=== PATIENT | male | born 1945 | race Hispanic/Latino ===

== ENCOUNTER 2022-09-28 08:30 | Emergency (ER) | payer OTHER, MEDICARE ==
[~2022-09-28] VITALS: Ht 165.1 cm; Wt 48.5 kg
[2022-09-28] MEDS ORDERED: LACTATED RINGERS 1000ML 1,000 ML IV ONE (10:00)
[2022-09-28 10:01] LABS: MEAN CORPUSCULAR HGB CONC 33.2 g/dL (32.0-36.0); MEAN CORPUSCULAR VOLUME 87.4 fL (79-99); RED BLOOD CELL COUNT(AUTO) 4.69 MIL/uL (4.50-6.20); RED CELL DISTRIBUTION WIDTH 14.5 % (11.0-15.5); WHITE BLOOD COUNT (AUTO) 9.4 K/uL (4.8-10.8)
[2022-09-28 10:09] LABS: APPEARANCE,URINE CLEAR (CLEAR); BILIRUBIN,URINE NEGATIVE (NEGATIVE); COLOR,URINE COLORLESS (YELLOW); GLUCOSE, URINE (UA) NEGATIVE (NEGATIVE); KETONES,URINE NEGATIVE (NEGATIVE); LEUKOCYTE ESTERASE ,URINE 25 Leu/uL (NEGATIVE); NITRATE,URINE NEGATIVE (NEGATIVE); OCCULT BLOOD,URINE SMALL (NEGATIVE); PH,URINE 6.5 (5.0-8.0); PROTEIN,URINE NEGATIVE (NEGATIVE); UROBILINOGEN,URINE 0.2 mg/dL (0.2-1.0)
[2022-09-28 10:29] LABS: BACTERIA,URINE RARE /HPF (None Seen); MUCUS,URINE RARE LPF (None Seen); RBC,URINE 26-50 /HPF (0-1)
[2022-09-28 11:00] LABS: ALBUMIN 3.8 g/dL (3.5-5.0); CREATININE 1.5 mg/dL (0.5-1.5); POTASSIUM 3.7 mmol/L (3.5-5.1); TOTAL PROTEIN, SERUM 7.4 g/dL (6.0-8.3)
[2022-09-28] MEDS ORDERED: CEPH500T PO (12:26)
[2022-09-28 12:49] VITALS: BP 164/82; PULSE 71; RESP 18; O2SAT 99
== END 2022-09-28 12:54 | disposition home or self-care (01) ==
LOC: EDH 08:30
DX: N40.1 Benign prostatic hyperplasia with lower urinary tract symptoms (principal); R33.8 Other retention of urine; I10 Essential (primary) hypertension; E78.00 Pure hypercholesterolemia, unspecified
CPT/HCPCS: 99284; 96360; 76770; 96361; 80053; 85027; 81001; 36415; 51702; J7120

== ENCOUNTER → 2023-03-29 | Outpatient (CLI) | payer OTHER ==
[~2023-03-29] VITALS: Ht 165.1 cm; Wt 49.5 kg
[~2023-03-29] MED LIST: AEC81 PO; AMLO-257 PO; ATOR-2 PO; CEFTRIAXONE 1G VIAL ONE; CEPH500T PO; LACTATED RINGERS 1000ML 1,000 ML IV ONE; LOSA50TA64 PO; TAMS-1 PO
[2023-03-29 12:45] VITALS: BP 208/76; PULSE 80; RESP 18
[2023-03-29 12:51] LABS: BASOPHILS # (AUTO) 0.04 K/uL (0.00-0.20); BASOPHILS % (AUTO) 0.6 % (0.0-5.0); EOSINOPHILS # (AUTO) 0.14 K/uL (0.00-0.70); EOSINOPHILS % (AUTO) 2.2 % (0.0-8.0); HEMATOCRIT 39.5 % (42-54); IMMATURE GRANULOCYTE ABSOLUTE 0.03 K/uL (0-1); LYMPHOCYTES # (AUTO) 2.1 K/uL (1.0-4.8); MEAN CORPUSCULAR HEMOGLOBIN 27.8 pg (27.0-33.0); MEAN CORPUSCULAR HGB CONC 31.6 g/dL (32.0-36.0); MEAN CORPUSCULAR VOLUME 87.8 fL (79-99); MONOCYTES # (AUTO) 0.5 K/uL (0.1-1.0); MONOCYTES % (AUTO) 7.1 % (3.0-13.0); NEUTROPHILS # (AUTO) 3.7 K/uL (1.8-7.7); NEUTROPHILS % (AUTO) 56.6 % (40.0-77.0); PLATELET COUNT (AUTO) 339 K/uL (130-400); RED CELL DISTRIBUTION WIDTH 14.5 % (11.0-15.5); WHITE BLOOD COUNT (AUTO) 6.5 K/uL (4.8-10.8)
[2023-03-29 12:52] LABS: APPEARANCE,URINE CLOUDY (CLEAR); BILIRUBIN,URINE NEGATIVE (NEGATIVE); COLOR,URINE LIGHT-YELLOW (YELLOW); GLUCOSE, URINE (UA) NEGATIVE (NEGATIVE); KETONES,URINE NEGATIVE (NEGATIVE); LEUKOCYTE ESTERASE ,URINE 500 Leu/uL (NEGATIVE); NITRATE,URINE 2+ (NEGATIVE); PH,URINE 6.5 (5.0-8.0); PROTEIN,URINE 10 mg/dL (NEGATIVE); UROBILINOGEN,URINE 0.2 mg/dL (0.2-1.0)
[2023-03-29 12:59] LABS: ADD UA MICROSCOPIC YES
[2023-03-29 13:06] LABS: INR <= 0.93 (0.85-1.15); PROTHROMBIN TIME 10.3 SEC (9.6-11.6)
[2023-03-29 13:07] LABS: PARTIAL THROMBOPLASTIN TIME 29.1 SEC (26.3-35.5)
[2023-03-29 13:19] LABS: CREATININE 1.2 mg/dL (0.5-1.5); POTASSIUM 4.5 mmol/L (3.5-5.1)
[2023-03-29 13:38] LABS: BACTERIA,URINE Moderate /HPF (None Seen)
[2023-03-29 13:46] LABS: SQUAMOUS EPITHELIAL CELL,UR 0-2 /HPF (0-2)
== END | disposition home or self-care (01) ==
LOC: DAH 12:04 → EDSTATUS 13:00 → DAH 04-01 10:03
PROVIDERS: ATTEND Urology
DX: N40.1 Benign prostatic hyperplasia with lower urinary tract symptoms (principal); R33.8 Other retention of urine; Z53.8 Procedure and treatment not carried out for other reasons; Z98.890 Other specified postprocedural states; Z79.899 Other long term (current) drug therapy; Z79.01 Long term (current) use of anticoagulants
CPT/HCPCS: 71045; 80048; 85025; 85610; 85730; 87077; 87088; 87186; 81001; 36415; 93005; A6260

== ENCOUNTER 2023-05-06 06:36 | Day surgery (SDC) | payer OTHER ==
[2023-04-30 12:03] LABS: BASOPHILS # (AUTO) 0.04 K/uL (0.00-0.20); BASOPHILS % (AUTO) 0.6 % (0.0-5.0); EOSINOPHILS # (AUTO) 0.11 K/uL (0.00-0.70); EOSINOPHILS % (AUTO) 1.6 % (0.0-8.0); HEMATOCRIT 44.4 % (42-54); IMMATURE GRANULOCYTE ABSOLUTE 0.03 K/uL (0-1); LYMPHOCYTES # (AUTO) 1.7 K/uL (1.0-4.8); LYMPHOCYTES % (AUTO) 24.1 % (21.0-51.0); MEAN CORPUSCULAR HEMOGLOBIN 27.7 pg (27.0-33.0); MEAN CORPUSCULAR HGB CONC 31.5 g/dL (32.0-36.0); MEAN CORPUSCULAR VOLUME 87.7 fL (79-99); MONOCYTES # (AUTO) 0.5 K/uL (0.1-1.0); MONOCYTES % (AUTO) 7.7 % (3.0-13.0); NEUTROPHILS # (AUTO) 4.6 K/uL (1.8-7.7); NEUTROPHILS % (AUTO) 65.6 % (40.0-77.0); PLATELET COUNT (AUTO) 342 K/uL (130-400); RED BLOOD CELL COUNT(AUTO) 5.06 MIL/uL (4.50-6.20)
[2023-04-30 12:10] VITALS: BP_SYST 160; BP_SYST 196; BP_DIAS 76; BP_DIAS 80; PULSE 69; RESP 16
[2023-04-30 12:17] LABS: APPEARANCE,URINE CLOUDY (CLEAR); BILIRUBIN,URINE NEGATIVE (NEGATIVE); COLOR,URINE LIGHT-YELLOW (YELLOW); GLUCOSE, URINE (UA) NEGATIVE (NEGATIVE); KETONES,URINE NEGATIVE (NEGATIVE); LEUKOCYTE ESTERASE ,URINE 500 Leu/uL (NEGATIVE); NITRATE,URINE 1+ (NEGATIVE); PROTEIN,URINE 20 mg/dL (NEGATIVE); UROBILINOGEN,URINE 0.2 mg/dL (0.2-1.0)
[2023-04-30 12:19] LABS: INR <= 0.93 (0.85-1.15); PROTHROMBIN TIME 10.3 SEC (9.6-11.6)
[2023-04-30 12:20] LABS: PARTIAL THROMBOPLASTIN TIME 30.4 SEC (26.3-35.5)
[2023-04-30 12:34] LABS: ADD UA MICROSCOPIC YES
[2023-04-30 12:38] LABS: BACTERIA,URINE MOD /HPF (None Seen); MUCUS,URINE RARE LPF (None Seen); WBC,URINE 51-100 /HPF (0-1)
[2023-04-30 13:41] LABS: CREATININE 1.2 mg/dL (0.5-1.5); POTASSIUM 4.1 mmol/L (3.5-5.1)
[~2023-05-06] VITALS: Ht 162.6 cm; Wt 48.9 kg
[2023-05-06] VITALS (23 sets, daily range): BP systolic 78–209; BP diastolic 34–101; PULSE 64–98; RESP 14–20
[~2023-05-06 06:36] MED LIST changes: -AEC81 PO; -CEFTRIAXONE 1G VIAL ONE; -CEPH500T PO; -LACTATED RINGERS 1000ML 1,000 ML IV ONE; +LEVO100C4 PO; -TAMS-1 PO
[2023-05-06] MEDS ORDERED: FAMOTIDINE 20MG VIAL IV ONE (07:40)
[2023-05-06] MEDS ORDERED: GLYCOPYRROLATE 0.2 MG/ML 5 ML VIAL ONE (07:43)
[2023-05-06] MEDS ORDERED: ROCURONIUM BROMIDE 10MG/1ML 5ML VL ONE (07:43)
[2023-05-06] MEDS ORDERED: LIDOCAINE PF 100MG/5ML (2%) SYRINGE 5ML ONE (07:43)
[2023-05-06] MEDS ORDERED: FENTANYL CITRATE PF 50 MCG/1 ML 2ML VIAL ONE ×2 (07:43→09:30)
[2023-05-06] MEDS ORDERED: PROPOFOL 10 MG/ML 20ML VIAL IV ONE (07:43)
[2023-05-06] MEDS: MEROPENEM 1 GM VIAL ONE (07:45)
[2023-05-06] MEDS: LACTATED RINGERS 1000ML 1,000 ML IV ONE (07:45)
[2023-05-06] MEDS ORDERED: MEROPENEM 1 GM VIAL IVPB SCH (08:00)
[2023-05-06] MEDS: MEROPENEM 1 GM VIAL IVPB ONE (08:45)
[2023-05-06] MEDS ORDERED: METOPROLOL TARTRATE 1 MG/ML 5ML VIAL IV ONE (08:51)
[2023-05-06] MEDS ORDERED: ALEN70TA80 PO (09:00)
[2023-05-06] MEDS ORDERED: SULF1TAB42 PO (09:00)
[2023-05-06] MEDS ORDERED: ONDANSETRON 4MG INJ ONE (09:36)
[2023-05-06] MEDS ORDERED: NEOSTIGMINE METHYLSULFATE 1MG/ML IV ONE (10:14)
[2023-05-06] MEDS: HYDRALAZINE 20MG/ML VIAL ONE ×2 (10:39→10:49)
[2023-05-06] MEDS: HYDROCODONE/ACETAMINOPHEN 5/325 MG TAB PO STA (11:56)
== END 2023-05-06 13:40 | disposition home or self-care (01) ==
LOC: DAH 06:36
PROVIDERS: ATTEND Urology
DX: N40.1 Benign prostatic hyperplasia with lower urinary tract symptoms (principal); N41.0 Acute prostatitis; N41.1 Chronic prostatitis; K21.9 Gastro-esophageal reflux disease without esophagitis; R33.8 Other retention of urine; I10 Essential (primary) hypertension; E07.9 Disorder of thyroid, unspecified; Z83.3 Family history of diabetes mellitus; Z87.891 Personal history of nicotine dependence; Z79.899 Other long term (current) drug therapy; Z79.890 Hormone replacement therapy; Z98.41 Cataract extraction status, right eye; Z98.42 Cataract extraction status, left eye
CPT/HCPCS: 80048; 85025; 85610; 85730; 87077; 87088; 87186; 81001; 36415; 71045; 93005; 52648; 88307; A6260; A4663; J7030; A4354; J7120; J3490 ×4; J3010 ×2; J2001; J0360 ×2; J2704; J2405; J2710; J2185 ×2; A4358 ×2; A4930; A4215; A4223; A4335; A4222; A4221; A4600